=== PATIENT | female | born 2000 | race Caucasian/White ===

== ENCOUNTER 2023-06-26 20:05 | Emergency (ER) | payer OTHER ==
[~2023-06-26] VITALS: Ht 152.4 cm; Wt 66.7 kg
[2023-06-26 20:10] VITALS: BP_SYST 130; PULSE 62; RESP 19; TEMP 97.9; O2SAT 98
[2023-06-26 21:04] LABS: BILIRUBIN,URINE NEGATIVE (NEGATIVE); BLOOD, URINE NEGATIVE (NEGATIVE); CLARITY/URINE CLEAR (CLEAR); COLOR,URINE YELLOW (YELLOW); GLUCOSE,URINE NEGATIVE (NEGATIVE); KETONES,URINE NEGATIVE (NEGATIVE); LEUKOCYTE ESTERASE ,URINE NEGATIVE (NEGATIVE); NITRITE, URINE POSITIVE (NEGATIVE); PH,URINE 6.5 (5.0-8.0); PROTEIN URINE NEGATIVE (NEGATIVE); UROBILINOGEN,URINE 0.2 (0.2-1.0)
[2023-06-26] MEDS ORDERED: CEPH-548 PO (21:31)
[2023-06-26 21:43] LABS: RBC,URINE NONE SEEN /HPF (0-3)
[2023-06-26 21:44] LABS: BACTERIA,URINE FEW /HPF (None Seen); MUCUS,URINE None Seen /LPF (None Seen); WBC,URINE 0-3 /HPF (0-3)
[2023-06-26 21:45] VITALS: BP_SYST 105; PULSE 98; RESP 19; TEMP 98; O2SAT 89
== END 2023-06-26 21:45 | disposition home or self-care (01) ==
LOC: SED 20:05
DX: N39.0 Urinary tract infection, site not specified (principal); Z79.899 Other long term (current) drug therapy
CPT/HCPCS: 81000; 81001; 81015; 87086; 99283